=== PATIENT | female | born 1975 | race African-American/Black ===

== ENCOUNTER 2024-08-21 13:31 | Emergency (ER) | payer OTHER, SELFPAY ==
[~2024-08-21 13:31] MED LIST: Iopamidol 370 76% 100 ML VIAL ONE
[2024-08-21] MEDS ORDERED: Aspirin 325 MG TAB ONE (13:53)
[2024-08-21 13:56] LABS: #Basophils 0.1 thou/uL (0.0-0.2); #Lymphocytes 1.8 thou/uL (1.20-3.40); #Monocytes 0.3 thou/uL (0.11-0.59); #Neutrophils 2.7 thou/uL (1.40-6.50); %Basophils 1.1 % (0.0-1.0); %Eosinophils 0.8 % (0.0-10.0); %Lymphocytes 37.2 % (21.0-51.0); %Monocytes 6.2 % (0.0-10.0); %Neutrophils 54.7 % (42.0-75.0); Hematocrit 36.3 % (36.0-47.0); Hemoglobin 12.6 g/dL (12.0-16.0); Mean Corpuscular HGB CONC 34.7 g/dL (32.0-36.0); Mean Corpuscular Hemoglobin 29.9 pg (27.0-31.0); Mean Corpuscular Volume 86.3 fl (78.0-98.0); Mean Platelet Volume 5.4 fL (7.4-10.4); Platelet Count 298 10x3/uL (130-400); RBC Distribution Width 11.2 % (11.5-14.5); Red Blood Cell (RBC) Count 4.21 mill/uL (4.20-5.40); White Blood Cell (WBC) Count 4.9 10x3/uL (4.8-10.8)
[2024-08-21] MEDS ORDERED: Lorazepam 2 MG/ML VIAL ONE (13:57)
[2024-08-21] MEDS ORDERED: Famotidine/PF 20 mg/2ml Vial ONE (13:57)
[2024-08-21 14:10] LABS: BHCG - Serum Negative (NEGATIVE); Pregs Control Background? CLEAR/WHITE (CLR/WHITE); Pregs Control Bar Appear? YES (CONTROL BAR)
[2024-08-21 14:20] LABS: Troponin I Less than 0.010 ng/mL (< 0.028)
[2024-08-21 16:29] LABS: Base Excess-Venous 1.6 mmol/L (-2.0 to 3.0); Bicarbonate (HCO3v) 27.7 mmol/L (22.0-28.0); CO2 Tension (PvCO2) 48.7 mmHg (42.0-51.0); Chloride 105 mmol/L (98-107); Hemoglobin - Calc 13.5 g/dL (12.0-16.0); Potassium 4.5 mmol/L (3.5-5.1); Sodium 143 mmol/L (138-145); vO2 Saturation-calc 97.5 % (60.0-85.0)
[2024-08-21 16:30] LABS: Calcium, Ionized 1.22 mmol/L (1.15-1.33); T. Carbon Dioxide 29.2 mmol/L (22.0-28.0)
== END 2024-08-21 16:10 | disposition home or self-care (01) ==
LOC: BURERS 13:31
DX: R07.9 Chest pain, unspecified (principal); R10.13 Epigastric pain
CPT/HCPCS: 71046; 74177; 82330; 82435; 82803; 83880; 84132; 84295; 84484; 84703; 85014; 85025; 87428; 93005; 96374; 96375; J2060; J3490; Q9967